=== PATIENT | male | born 1945 | race Caucasian/White ===

== ENCOUNTER 2025-02-17 16:29 | Emergency (ER) | payer OTHER, MEDICARE, SELFPAY ==
[2025-02-17 16:39] VITALS: BP 157/85
[2025-02-17 16:52] LABS: Hematocrit 44.0 % (39.0-52.0); Hemoglobin 15.4 g/dL (13.0-18.0); Mean Corp Hgb Conc. 35.0 g/dL (33.0-37.0); Mean Corpuscular Volume 90.0 fL (80.0-94.0); Nucleated Red Blood Cells % 0 % (-); Platelet Count 250 10^3/uL (130-400); Red Cell Dist. Width 14.0 % (11.5-14.5)
[2025-02-17 17:33] LABS: ALT (SGPT) 26 U/L (0-50); AST (SGOT) 26 U/L (17-59); Albumin 4.6 g/dl (3.5-5.0); Alkaline Phosphatase 117 U/L (38-126); Blood Urea Nitrogen 17 mg/dl (9-20); Calcium 9.6 mg/dl (8.4-10.2); Carbon Dioxide 20 mmol/L (22-30); Chloride 107 mmol/L (98-107); Glucose 105 mg/dl (70-99); Potassium 4.0 mmol/L (3.5-5.1); Sodium 140 mmol/L (135-145); Total Protein 8.0 g/dl (6.3-8.2); eGFR > 60.00
[2025-02-17 18:56] VITALS: BP 155/88
[2025-02-17 19:00] VITALS: BP 138/82
[2025-02-17 19:01] VITALS: BMI 32.7
--- NOTE | 2025-02-17 19:50 | ED.GENMED ---
History of Present Illness
General
Chief Complaint: Head Injury
Time Seen by Provider: 02/17/25 19:02
History of Present Illness
History of Present Illness:
79-year-old male history of hypertension presenting with difficulty speaking for the past 2 months. Patient's friend states that he had not talked him in a few months and then 2 to 3 months ago talk to him for the first time and noticed that his
speech was 'off'. Patient states that he went over to patient's home 2 weeks ago, Tried to convince the patient to go to the emergency department but patient refused. Patient was agreeable for evaluation today. Patient states that he had a
difficult time speaking with slurred speech for the past 2 to 3 months. Patient states that it for started happening after he slipped and fell at work striking his head. No loss of consciousness. Patient is not on blood thinners. Patient denies
any focal weakness, numbness or tingling. Patient states he lives at home alone but states that he feels safe at home. Friend at bedside states that when he picked patient up he was showered and appears to be taking good care of himself by himself.
Past History
Past History
ED Past Medical History: HTN and Other (Gout, peripheral vascular disease )
Social History
Tobacco: Non-smoker
Alcohol: Occasional
Living: with family
Employment: Employed
Phy Exam
Physical Exam
Physical Exam:
General: Alert, no acute distress
Head: NCAT
Eyes: clear conjunctiva, PERRLA, EOMI
Neck: supple
Cardiac: regular rate and rhythm, no murmur
Lungs: clear to auscultation bilaterally. No wheezes, rales, or rhonchi. Speaking full unlabored sentences. No respiratory distress.
Abdomen: soft, nondistended nontender. No rebound or guarding.
MSK: no lower extremity edema bilaterally. No deformity
Skin: warm, dry
Neuro: Alert and oriented x3. Cranial nerves II through XII grossly intact no focal deficits. Normal finger-nose. 5-5 strength bilateral upper and lower extremities. Station intact throughout. No pronator drift bilateral upper and lower
extremities. Ambulatory with steady gait. Mildly slurred speech, able to identify all items on picture but describes picture using single words. Uses appropriate words
Course
Orders/Labs/Results
Orders:
Orders
02/17/25 16:45
Complete Blood Count/With Diff Urgent
Comprehensive Metabolic Panel Urgent
02/17/25 17:[address] [CT Head W/o Iv Contrast] Urgent
Comment:
Reason For Exam: speech difficulty
02/17/25 19:59
EKG [Electrocardiogram (*1)] Urgent
Reason for Study: TIA/Stroke
EKG- Treatment ONCE
Abnormal Lab Results
02/17/25
16:45
WBC 11.6 H 10^3/uL
(4.8-10.8)
MCH 31.5 H pg
(27.0-31.0)
Abs Immat Gran (auto) 0.1 H 10^3/uL
(0-0.05)
Absolute Neuts (auto) 7.1 H 10^3/uL
(1.4-6.5)
Absolute Monos (auto) 1.1 H 10^3/uL
(0.1-0.6)
Monocytes % 9.4 H %
(1.7-9.3)
Carbon Dioxide 20 L mmol/L
(22-30)
Glucose 105 H mg/dl
(70-99)
02/17/25 16:45
02/17/25 16:45
Vital Signs
Initial and Last Documented VS:
Initial Vital Signs
Temp Pulse Resp BP Pulse Ox
98.2 F 93 16 157/85 95
02/17/25 16:39 02/17/25 16:39 02/17/25 16:39 02/17/25 16:39 02/17/25 16:39
Last Documented Vital Signs
Temp Pulse Resp BP Pulse Ox
98.2 F 94 28 155/85 93
02/17/25 16:39 02/17/25 20:15 02/17/25 20:00 02/17/25 20:00 02/17/25 19:51
MDM/Problems Addressed
Differential Diagnosis Includes:
Stroke, intracranial hemorrhage, brain mass, DG, electrolyte abnormality.
MDM/Problems Addressed:
79-year-old male presenting with difficulty speaking for the past 2 to 3 months. Patient states that it happened after he slipped and fell at work striking his head. CT head shows no acute intracranial abnormality, chronic senescent changes. On
evaluation, patient has minimally slurred speech, speaks in single words instead of fluent sentences. Concern for possible stroke that happened months ago. Discussed results with patient and friends at bedside. Recommended admission for neurology
consultation. Patient declined, states that he would like to follow-up outpatient. Given symptoms started 2 to 3 months ago, reasonable to follow-up outpatient at [facility]. Patient feels safe at home, states he is able to take care of himself. Stable
for discharge home
Chronic conditions affecting care: HTN
*Pulse Oximetry
SaO2: 93
Oxygen Mode of Delivery: Room air
Patient hypoxic: no
*EKG
Interpreted by ED Provider?: Yes (Normal sinus rhythm at 95 bpm with HI 200 QTc 497 right bundle branch block, no previous for comparison)
*Critical Care Note
Total Time (30-74mins, 75-104mins- exclusive of procedures): Not Applicable
ED Attending Note
-
Portions of this chart may have been created with voice recognition software.� Occasional wrong word or��sound alike� substitutions may have occurred due to the inherent limitations of voice recognition software.
Discharge Plan
Departure
Patient Disposition: Home (Routine Discharge)
Date of Disposition: 02/17/25
Time of Disposition: 20:20
Patient with high blood pressure during this ER visit?: Yes
Discharge Problem:
Slurred speech
Instructions: Stroke - Discharge instructions, BLOOD PRESSURE
Prescriptions:
No Action
doxycycline hyclate 100 MG capsule
100 mg PO BID Qty: 14 0RF
Referrals:
Donald Cross MD [Active, Neurology]
UNKNOWN - PT DOES,NOT KNOW [Family Provider]
Activity Restrictions/Additional Instructions:
Follow-up with neurology this week
Return to the emergency department for focal weakness, numbness, visual changes or new/worsening symptoms
Interventions
Interventions:
*Risk Screen - Suicide Last Done: 02/17/25 16:42
*General Assessment Last Done: 02/17/25 18:58
*Neglect/Abuse Screening Last Done: 02/17/25 16:42
*ED- Fall Risk Assessment Last Done: 02/17/25 18:58
*ED COVID-19 Vaccine History Last Done: 02/17/25 18:58
*Nursing Disposition Last Done: 02/17/25 20:40
ED- Neurological Assessment Last Done: 02/17/25 19:14
ED-Skin Assessment Last Done: 02/17/25 19:14
Discharge Date and Time
Discharge Date/Time: 02/17/25 21:29
Print Language: PORTUGUESE
[2025-02-17 20:00] VITALS: BP 155/85
== END 2025-02-17 21:29 | disposition home or self-care (01) ==
LOC: EMR 16:29
PROVIDERS: Student in an Organized Health Care Education/Training Program; EMERGENCY PHYSICIAN Emergency Medicine
DX: R47.81 Slurred speech (principal); I10 Essential (primary) hypertension; I73.9 Peripheral vascular disease, unspecified; Z60.2 Problems related to living alone; Z86.73 Personal history of transient ischemic attack (TIA), and cerebral infarction without residual deficits
CPT/HCPCS: 99284; 70450; 80053; 85025; 93005

== ENCOUNTER 2025-03-15 08:40 | Emergency (ER) | payer OTHER, MEDICARE, SELFPAY ==
[2025-03-15 08:45] VITALS: BP 142/78
--- NOTE | 2025-03-15 10:13 | ED.GENMED ---
History of Present Illness
General
Chief Complaint: Musculo-Skeletal Complaint
Source: patient
Exam Limitations: none
Time Seen by Provider: 03/15/25 10:02
History of Present Illness
History of Present Illness:
79-year-old male complaining of 2 weeks of neck pain. States he presented today because he is just tired of having. It is positional in nature. Denies numbness tingling weakness. Patient was here about 4 weeks ago for speech issues at that have
been ongoing for months at that time. Head CT was stable. Advised close neurologic follow-up then which he has not done yet. Denies other new neurologic symptoms.
Past History
Past History
ED Past Medical History: HTN and Other (Gout, peripheral vascular disease )
Social History
Tobacco: Non-smoker
Alcohol: Occasional
Review of Systems
Review of Systems
All Other Systems: Not applicable
Constitutional: Denies fever or chills
Respiratory: Reports no symptoms
Cardiac: Reports no symptoms
ABD/GI: Reports no symptoms
Phy Exam
Physical Exam
Physical Exam:
GENERAL: Alert and oriented in no apparent distress. Ambulated to the room in no distress
EYE: Orbits normal.
NECK: Decreased lateral rotation worse to the left than right. No spinal tenderness. No neck swelling. No carotid bruit
CARDIAC: Regular rate and rhythm without any obvious murmurs.
LUNGS: Clear breath sounds,normal
ABDOMEN: Soft, without focal tenderness or distention
NEUROLOGICAL: Alert and oriented , some expressive aphasia. However follows commands well. [employer] normal. Wrist extension flexion normal. Interosseous intact. Light touch normal. Gait normal. No facial droop. No slurred speech.
SKIN: Warm and dry, no rash or lesion, no discoloration, skin intact.
MUSCULOSKELETAL: No edema,no deformity.Good color
PSYCH: Normal and appropriate interaction.
Course
Orders/Labs/Results
Orders:
Orders
03/15/25 10:12
CT Head W/o Iv Contrast Urgent
Comment:
Reason For Exam: Neck pain/ongoing speech issues
CT Neck Angio W/wo Iv Contrast Urgent
Comment:
Reason For Exam: Neck pain/ongoing speech issues
IV Insert/Care/Rem.- Treatment PRN
0.9% Sodium Chloride 500 ml [Nss] 500 ml IV BOLUS
03/15/25 10:13
Basic Metabolic Panel Urgent
Complete Blood Count/With Diff Urgent
03/15/25 14:03
Acetaminophen [Tylenol] 650 mg PO NOW STA
Dexamethasone Sod Phosphate [Decadron] 6 mg IV NOW STA
Abnormal Lab Results
03/15/25
10:13
RDW 14.6 H %
(11.5-14.5)
Absolute Monos (auto) 1.1 H 10^3/uL
(0.1-0.6)
Monocytes % 11.6 H %
(1.7-9.3)
Creatinine 0.6 L mg/dL
(0.7-1.3)
Glucose 103 H mg/dl
(70-99)
Calcium 10.4 H mg/dl
(8.4-10.2)
03/15/25 10:13
03/15/25 10:13
Vital Signs
Initial and Last Documented VS:
Initial Vital Signs
Temp Pulse Resp BP Pulse Ox
98.2 F 94 16 142/78 98
03/15/25 08:45 03/15/25 08:45 03/15/25 08:45 03/15/25 08:45 03/15/25 08:45
Last Documented Vital Signs
Temp Pulse Resp BP Pulse Ox
98.2 F 97 20 146/69 93
03/15/25 08:45 03/15/25 14:14 03/15/25 14:14 03/15/25 14:14 03/15/25 14:14
MDM/Problems Addressed
Differential Diagnosis Includes:
Patient with neck discomfort for 2 weeks. Nothing to support an infectious issue. Clinically this is musculoskeletal in nature. However with his speech issues that have been going on for months, we will get a CT angio to check for dissection or
significant carotid obstruction.
*Pulse Oximetry
SaO2: 98
Oxygen Mode of Delivery: Room air
Patient hypoxic: no
*Critical Care Note
Total Time (30-74mins, 75-104mins- exclusive of procedures): Not Applicable
Update Note
Update Note:
CT scans were reviewed and copies given to patient. No critical vascular issues. Degenerative changes in the spine. Clinically this appears all musculoskeletal. Secondarily he has this aphasia that has been chronic and needs further workup as an
outpatient.
ED Attending Note
-
Portions of this chart may have been created with voice recognition software.� Occasional wrong word or��sound alike� substitutions may have occurred due to the inherent limitations of voice recognition software.
Discharge Plan
Departure
Patient Disposition: Home (Routine Discharge)
Date of Disposition: 03/15/25
Time of Disposition: 14:05
Patient with high blood pressure during this ER visit?: Yes
Discharge Problem:
Neck pain, Ongoing aphasia
Instructions: Neck pain - ED discharge instructions, BLOOD PRESSURE
Prescriptions:
New
methylprednisolone [Medrol ([place])] 4 mg tablets,dose pack
See Rx Instructions .ROUTE .COMPLEX Qty: 21 0RF
Rx Instructions:
orally per package directions
No Action
doxycycline hyclate 100 MG capsule
100 mg PO BID Qty: 14 0RF
Referrals:
NONE,* [Family Provider, Internal Medicine]
Activity Restrictions/Additional Instructions:
Call your primary physician for close follow-up of your cervical issues and of your difficulty speaking. This needs further outpatient workup
Start the oral prednisone tomorrow. Prescription was sent to your pharmacy
Tylenol for pain
Interventions
Interventions:
*Risk Screen - Suicide Last Done: 03/15/25 08:46
*General Assessment Last Done: 03/15/25 10:21
*Neglect/Abuse Screening Last Done: 03/15/25 08:46
*ED- Fall Risk Assessment Last Done: 03/15/25 10:21
*ED COVID-19 Vaccine History Last Done: 03/15/25 11:52
*Nursing Disposition Last Done: 03/15/25 14:15
ED-Musculoskeletal Assessment Last Done: 03/15/25 10:22
Discharge Date and Time
Discharge Date/Time: 03/15/25 14:16
Print Language: TURKMEN
[2025-03-15] MEDS: NSS 500 IV (10:19)
[2025-03-15 10:36] LABS: Hematocrit 44.7 % (39.0-52.0); Hemoglobin 15.3 g/dL (13.0-18.0); Mean Corp Hgb Conc. 34.2 g/dL (33.0-37.0); Mean Corpuscular Volume 90.3 fL (80.0-94.0); Nucleated Red Blood Cells % 0 % (-); Platelet Count 213 10^3/uL (130-400); Red Cell Dist. Width 14.6 % (11.5-14.5)
[2025-03-15 11:11] LABS: Blood Urea Nitrogen 14 mg/dl (9-20); Calcium 10.4 mg/dl (8.4-10.2); Carbon Dioxide 26 mmol/L (22-30); Chloride 102 mmol/L (98-107); Glucose 103 mg/dl (70-99); Potassium 4.0 mmol/L (3.5-5.1); Sodium 140 mmol/L (135-145); eGFR > 60.00
[2025-03-15] MEDS: TYLENOL 650 MG PO (14:09)
[2025-03-15] MEDS: DECADRON 6 MG IV (14:09)
[2025-03-15 14:14] VITALS: BP 146/69
== END 2025-03-15 14:16 | disposition home or self-care (01) ==
LOC: EMR 08:40
PROVIDERS: EMERGENCY PHYSICIAN Emergency Medicine
DX: M54.2 Cervicalgia (principal); R47.01 Aphasia; I10 Essential (primary) hypertension; I73.9 Peripheral vascular disease, unspecified
CPT/HCPCS: 99284; 70450; 70498; 80048; 85025; Q9967

== ENCOUNTER 2025-03-27 07:44 | Emergency (ER) | payer OTHER, MEDICARE, SELFPAY ==
[2025-03-27 07:46] VITALS: BP 144/78
--- NOTE | 2025-03-27 07:55 | ED.GENMED ---
History of Present Illness
General
Chief Complaint: Musculo-Skeletal Complaint
Source: patient
Exam Limitations: none
Time Seen by Provider: 03/27/25 07:49
History of Present Illness
History of Present Illness:
See MDM
Past History
Past History
ED Past Medical History: HTN and Other (Gout, peripheral vascular disease )
Social History
Tobacco: Non-smoker
Alcohol: Occasional
Living: with family
Employment: Employed
Phy Exam
Physical Exam
Physical Exam:
See MDM
Course
Orders/Labs/Results
Orders:
Orders
03/27/25 07:53
Cyclobenzaprine HCl [Flexeril] 10 mg PO NOW STA
Ibuprofen [Motrin] 600 mg PO NOW STA
Cervical Spine 4 or 5 Vw [CR Cervical Spine 4 Or 5 Vw] Urgent
Comment:
Reason For Exam: left posterior neck pain
03/27/25 07:54
Electrocardiogram (*1) Urgent
Reason for Study: Other
Other Reason for Exam: neck pain
EKG- Treatment ONCE
03/27/25 09:47
Lidocaine [Lidocaine 4% Patch] 1 patch TOPICAL ONCE ONE
Apply Lidocaine patch(s) to:: left neck
Vital Signs
Initial and Last Documented VS:
Initial Vital Signs
Temp Pulse Resp BP Pulse Ox
97.7 F 98 16 144/78 98
03/27/25 07:46 03/27/25 07:46 03/27/25 07:46 03/27/25 07:46 03/27/25 07:46
Last Documented Vital Signs
Temp Pulse Resp BP Pulse Ox
97.7 F 80 20 145/89 94
03/27/25 07:46 03/27/25 08:26 03/27/25 08:26 03/27/25 08:26 03/27/25 08:26
MDM/Problems Addressed
Differential Diagnosis Includes:
Note:
CHIEF COMPLAINT(S)
Neck pain for several days.
HISTORY OF PRESENT ILLNESS
The patient is a 79-year-old male who presents with neck pain that he reports has been present for a few days. The pain is located in the posterior cervical region. The patient is unsure of the cause, but denies any recent lifting or straining that
could have exacerbated the condition. No anterior neck pain is noted upon examination. The patient has not taken any medication for the pain. Pt denies chest pain or SOB
ALLERGIES
The patient reports an allergy to penicillin.
PHYSICAL EXAM
General: Alert, no acute distress.
Skin: Warm, dry.
Head: Normocephalic, atraumatic
Neck: Appears supple, trachea midline. No midline tenderness. Mild spasm noted to the left trapezius along paracervical musculature
Eyes, Ears, Nose, Mouth, and Throat: Oral mucosa moist.
Cardiovascular: No signs of cyanosis. Regular rate and rhythm
Respiratory: Respirations are non-labored.
Abdomen: Non-distended
Musculoskeletal: No deformities
Neurological: No focal neurological deficit observed.
Psychiatric: Cooperative, appropriate mood and affect.
PLAN
1. Administer pain medication and a muscle relaxant to manage pain and suspected muscle spasm.
2. Perform an electrocardiogram to evaluate cardiac function.
3. Conduct a neck X-ray to assess for any structural abnormalities.
DIFFERENTIAL DIAGNOSIS
The Differential Diagnosis includes, in no particular order and is not limited to:
1. Cervical muscle spasm
2. Cervical spondylosis
3. Cervical radiculopathy
4. Myofascial pain syndrome
5. Osteoarthritis
6. Herniated cervical disc
7. Cervical spine fracture
8. Fibromyalgia
9. Tension headache
10. Referred cardiac pain
SUMMARY OF ENCOUNTER
The patient, a 79-year-old male, presented to the emergency department with neck pain lasting several days, primarily in the posterior cervical region. Upon examination and patient history, no recent lifting or straining was reported, and the pain
was aggravated by ambulation. A neck X-ray was performed, revealing arthritic changes but no acute fracture. Based on the findings, the condition is considered musculoskeletal in nature, with no anterior neck pain, meningismus, or acute neurological
deficits. The patient is ambulatory without difficulty.
EMERGENCY TREATMENTS ADMINISTERED
A lidocaine patch and NSAIDs were administered to manage pain.
PLAN
Manage pain with lidocaine patch and NSAIDs. Educate the patient on musculoskeletal neck pain management. Monitor for any worsening symptoms or emergence of new symptoms, such as neurological changes.
INDEPENDENT REVIEW OF LABS AND INTERPRETATION OF TESTS
My independent neck X-ray interpretation is arthritic changes without acute fracture.
PATIENT EDUCATION AND COUNSELING
The patient was educated on the nature of musculoskeletal neck pain and advised on strict return precautions. The importance of monitoring for any new symptoms or neurological changes was emphasized.
FOLLOW-UP INSTRUCTIONS
The patient was advised to seek follow-up care if symptoms persist or worsen, specifically if neurological symptoms develop.
MEDICATION RECONCILIATION
A lidocaine patch and NSAIDs were administered during the visit.
MEDICAL DECISION MAKING
-Complexity of Data Reviewed:
DDx includes cervical muscle spasm, cervical spondylosis, cervical radiculopathy, myofascial pain syndrome, osteoarthritis, herniated cervical disc, cervical spine fracture, fibromyalgia, tension headache, referred cardiac pain.
-Data:
Category 1
My independent neck X-ray interpretation is arthritic changes without acute fracture.
DIAGNOSIS
Cervical spondylosis (ICD-10: M47.892)
Musculoskeletal neck pain (uncertain classification, likely cervicalgia if local neck pain without radiculopathy)
*Pulse Oximetry
SaO2: 98
Oxygen Mode of Delivery: Room air
Patient hypoxic: no
*Critical Care Note
Total Time (30-74mins, 75-104mins- exclusive of procedures): Not Applicable
ED Attending Note
-
Portions of this chart may have been created with voice recognition software.� Occasional wrong word or��sound alike� substitutions may have occurred due to the inherent limitations of voice recognition software.
Discharge Plan
Departure
Patient Disposition: Home (Routine Discharge)
Date of Disposition: 03/27/25
Time of Disposition: 09:50
Patient with high blood pressure during this ER visit?: Yes
Discharge Problem:
Neck pain
Instructions: Neck pain - ED discharge instructions, BLOOD PRESSURE
Prescriptions:
New
diclofenac sodium 75 mg tablet,delayed release (DR/EC)
75 mg PO BID PRN (Reason: Pain) Qty: 20 0RF
lidocaine 4 % adhesive patch,medicated
1 patch topical DAILY PRN (Reason: Pain) Qty: 10 0RF
No Action
doxycycline hyclate 100 MG capsule
100 mg PO BID Qty: 14 0RF
methylprednisolone [Medrol ([place])] 4 mg tablets,dose pack
See Rx Instructions .ROUTE .COMPLEX Qty: 21 0RF
Rx Instructions:
orally per package directions
Referrals:
Julieta Iraheta MD [Family Provider, Family Practice]
Activity Restrictions/Additional Instructions:
Please return for any worsening symptoms.
You may return at any time if you have further concerns.
Please follow up with your doctor at the first available appointment, preferably this week.
Thank you for choosing [facility].
Interventions
Interventions:
*Risk Screen - Suicide Last Done: 03/27/25 07:46
*General Assessment Last Done: 03/27/25 08:26
*Neglect/Abuse Screening Last Done: 03/27/25 07:46
*ED- Fall Risk Assessment Last Done: 03/27/25 08:26
*ED COVID-19 Vaccine History Last Done: 03/27/25 08:26
Discharge Date and Time
Print Language: POLISH
[2025-03-27 08:04] VITALS: BP 145/89
[2025-03-27] MEDS: MOTRIN 600 MG PO (08:24)
[2025-03-27] MEDS: FLEXERIL 10 MG PO (08:24)
[2025-03-27 08:26] VITALS: BP 145/89
[2025-03-27] MEDS: LIDOCAINE 4% PATCH 1 PATCH TOPICAL (09:53)
== END 2025-03-27 10:02 | disposition home or self-care (01) ==
LOC: EMR 07:44
PROVIDERS: EMERGENCY PHYSICIAN Student in an Organized Health Care Education/Training Program; FAMILY PHYSICIAN Family Medicine
DX: M54.2 Cervicalgia (principal); I10 Essential (primary) hypertension; I73.9 Peripheral vascular disease, unspecified; M10.9 Gout, unspecified; M47.812 Spondylosis without myelopathy or radiculopathy, cervical region; Z88.0 Allergy status to penicillin
CPT/HCPCS: 99284; 72050; 93005

== ENCOUNTER 2025-05-16 07:52 | Emergency (ER) | payer MEDICARE, OTHER, SELFPAY ==
[2025-05-16 07:53] VITALS: BP 157/94
--- NOTE | 2025-05-16 09:19 | ED.GENMED ---
History of Present Illness
General
Chief Complaint: Urinary Symptoms
Source: patient
Exam Limitations: none
Time Seen by Provider: 05/16/25 08:33
Nursing documentation reviewed up to this point in time: agreed with
History of Present Illness
History of Present Illness:
Patient is a 79-year-old male with history hypertension who presents emergency department with an inability to urinate since 9 PM last night. He states that he last urinated around 9 PM last night and has been unable to go since. He does have a
sense of urinary urgency. He denies any recent dysuria or hematuria. He has not had any fever or chills. He denies any abdominal pain. He denies any history of known prostate issues.
Patient clearly is having difficulty finding his words on my assessment. He states this has been occurring for 6 months and has never had this worked up. On chart review�it does appear that he has had a few CAT scans over the past few months in
regard to this which have been negative. He has not followed up with neurology. He does report that symptoms are worsening and he is now unsteady on his feet, as well.
He denies any recent falls or trauma. No visual changes.
He does report a past history of stroke many years ago.
Past History
Past History
ED Past Medical History: HTN and Other (Gout, peripheral vascular disease )
Social History
Tobacco: Non-smoker
Alcohol: Occasional
Living: with family
Employment: Employed
Review of Systems
Review of Systems
Allergies reviewed?: Yes
All Other Systems: ROS reviewed and negative except as documented in HPI and ROS
Phy Exam
Physical Exam
Physical Exam:
Vitals: Hypertensive and tachycardic on arrival. Improved by my assessment. Afebrile
General: Patient is well appearing, no acute distress
Skin: Warm and dry, no rashes or lesions
Head: Normocephalic, atraumatic
Eyes: Sclera nonicteric. EOMs intact. No nystagmus.
Throat: Protecting airway
Neck: Normal ROM, no cervical spine tenderness, no meningismus
Cardiac: Regular rate and rhythm, no murmurs.
Pulm: Normal respiratory effort, no wheezes, rales, rhonchi heard on exam
Abdomen: Abdomen soft and nontender. Nondistended.
Extremities: No evidence of cyanosis or edema. Strength 5/5 in bilateral upper and lower extremities.
Neuro: AAOx3. No facial droop or asymmetry. Expressive aphasia. Slow gait, no obvious ataxia.
Psychiatric: Normal affect.
Course
Orders/Labs/Results
Orders:
Orders
05/16/25 08:56
Mahoney Placement- Treatment ONCE
Reason for insertion: Acute Retention
05/16/25 09:45
CT Head & Neck Angio W/wo IV Urgent
Comment:
Reason For Exam: dysarthria
05/16/25 09:58
Complete Blood Count/With Diff Urgent
Comprehensive Metabolic Panel Urgent
Abnormal Lab Results
05/16/25
09:58
Absolute Neuts (auto) 7.1 H 10^3/uL
(1.4-6.5)
Absolute Monos (auto) 0.8 H 10^3/uL
(0.1-0.6)
Lymphocytes % 18.9 L %
(20.5-51.1)
Glucose 120 H mg/dl
(70-99)
05/16/25 09:58
05/16/25 09:58
Vital Signs
Initial and Last Documented VS:
Initial Vital Signs
Temp Pulse Resp BP Pulse Ox
97.6 F 112 16 157/94 95
05/16/25 07:53 05/16/25 07:53 05/16/25 07:53 05/16/25 07:53 05/16/25 07:53
Last Documented Vital Signs
Temp Pulse Resp BP Pulse Ox
97.6 F 74 16 121/74 98
05/16/25 07:53 05/16/25 12:53 05/16/25 12:53 05/16/25 12:53 05/16/25 12:53
MDM/Problems Addressed
Differential Diagnosis Includes:
Not limited to: Acute urinary retention, brain tumor, brain bleed, CVA, dementia, etc.
MDM/Problems Addressed:
79-year-old male presenting with acute urinary retention. No abdominal pain, infectious symptoms. Bladder scan reveals 360 cc in bladder, unable to void.
RN did place mahoney catheter which drained approximately 500 cc urine � does not appear infected. Patient states he feels much better.
On exam � patient appears to have relatively significant expressive aphasia. No other neurological deficits. I did discuss w/ patient who states this has been occurring over the past six months and has never been worked up by a medical professional.
He also feels it is becoming worse recently, and he is unsteady on his feet.
According to prior emergency department records � he has been seen for this with negative imaging a few times over the past few months. However � he has never had MRI or followed up with neurologist. Given worsening in symptoms as well as new
unsteadiness � will check labs and obtain CTA head/neck with concern for central process such as brain tumor/prior CVA.
Update: labs and imaging unremarkable. I strongly recommended admission to patient for neurology evaluation and likely MRI. Patient declined admission multiple times and is aware that we may be missing critical neurologic diagnosis.
Patient will be discharged home with return precautions. Advise him to follow up with neurology outpatient.
Lengthy discussion regarding Mahoney catheter care as well as urology follow up next week. Strict return precautions discussed.
Chronic conditions affecting care:
Hypertension
Acute Exacerbation and/or Progression of Chronic Illness:
Acutely hypertensive
*Radiology
Radiology exam reviewed: radiology read reviewed
*Pulse Oximetry
SaO2: 95
Oxygen Mode of Delivery: Room air
Patient hypoxic: no
*EKG
Interpreted by ED Provider?: NA
*Mold Yarn Supervisor Interpretation
Rate: Mold Yarn Supervisor- N/A
*Critical Care Note
Total Time (30-74mins, 75-104mins- exclusive of procedures): Not Applicable
ED Attending Note
-
Portions of this chart may have been created with voice recognition software.� Occasional wrong word or��sound alike� substitutions may have occurred due to the inherent limitations of voice recognition software.
Discharge Plan
Departure
Patient Disposition: Home (Routine Discharge)
Date of Disposition: 05/16/25
Time of Disposition: :
Patient with high blood pressure during this ER visit?: Yes
Condition: Good
Discharge Problem:
Acute urinary retention, Aphasia
Instructions: How to Care for Your Mahoney Catheter, Male, Aphasia (DC), Urinary retention (DC), BLOOD PRESSURE
Prescriptions:
No Action
doxycycline hyclate 100 MG capsule
100 mg PO BID Qty: 14 0RF
methylprednisolone [Medrol ([place])] 4 mg tablets,dose pack
See Rx Instructions .ROUTE .COMPLEX Qty: 21 0RF
Rx Instructions:
orally per package directions
diclofenac sodium 75 mg tablet,delayed release (DR/EC)
75 mg PO BID PRN (Reason: Pain) Qty: 20 0RF
lidocaine 4 % adhesive patch,medicated
1 patch topical DAILY PRN (Reason: Pain) Qty: 10 0RF
Referrals:
Nirali Connor MD [Non-Admitting Privileges, Neurology]
David Kim MD [Active, Urology] - Next open appointment
UNKNOWN - PT DOES,NOT KNOW [Family Provider]
Activity Restrictions/Additional Instructions:
RETURN TO THE EMERGENCY DEPARTMENT WITH ANY FEVER, CHILLS, ABDOMINAL PAIN, LACK OF URINE OUTPUT FROM CATHETER, BACK PAIN, WORSENING NEUROLOGIC SYMPTOMS SUCH DIFFICULTY WITH SPEECH OR BALANCE, CHANGES IN VISION, CHANGES IN MENTAL STATUS, OR ANY
OTHER CONCERNS
- As discussed, you were found to have acute urinary retention in the emergency department. A Mahoney catheter was placed. This must stay in until you are seen by urology. Please call on Sunday for an appt
- It was recommended that you stay in the hospital for neurology evaluation and MRI given worsening speech as well as unsteadiness. You should follow-up with neurology outpatient for further evaluation
Monitor your symptoms closely and return to the emergency department with any acute worsening/new symptoms or any signs of infection
Interventions
Interventions:
*Risk Screen - Suicide Last Done: 05/16/25 07:53
*General Assessment Last Done: 05/16/25 07:53
*Neglect/Abuse Screening Last Done: 05/16/25 07:53
*ED- Fall Risk Assessment Last Done: 05/16/25 09:33
*ED COVID-19 Vaccine History Last Done: 05/16/25 09:33
*Nursing Disposition Last Done: 05/16/25 12:53
ED-Male Genitourinary Assessment Last Done: 05/16/25 09:33
Discharge Date and Time
Discharge Date/Time: 05/16/25 12:54
Print Language: MALAWIAN
[2025-05-16 09:33] VITALS: BP 126/74
[2025-05-16 10:15] LABS: Hematocrit 46.2 % (39.0-52.0); Hemoglobin 16.2 g/dL (13.0-18.0); Mean Corp Hgb Conc. 35.1 g/dL (33.0-37.0); Mean Corpuscular Volume 88.0 fL (80.0-94.0); Nucleated Red Blood Cells % 0 % (-); Platelet Count 225 10^3/uL (130-400); Red Cell Dist. Width 13.6 % (11.5-14.5)
[2025-05-16 10:38] LABS: ALT (SGPT) 27 U/L (0-50); AST (SGOT) 30 U/L (17-59); Albumin 4.6 g/dl (3.5-5.0); Alkaline Phosphatase 115 U/L (38-126); Blood Urea Nitrogen 17 mg/dl (9-20); Calcium 9.9 mg/dl (8.4-10.2); Carbon Dioxide 25 mmol/L (22-30); Chloride 102 mmol/L (98-107); Glucose 120 mg/dl (70-99); Potassium 4.1 mmol/L (3.5-5.1); Sodium 137 mmol/L (135-145); Total Protein 7.9 g/dl (6.3-8.2); eGFR > 60.00
[2025-05-16 12:50] VITALS: BP 124/78
[2025-05-16 12:53] VITALS: BP 121/74
== END 2025-05-16 12:54 | disposition home or self-care (01) ==
LOC: EMR 07:52
PROVIDERS: Physician Assistant; EMERGENCY PHYSICIAN Emergency Medicine
DX: R33.9 Retention of urine, unspecified (principal); R47.01 Aphasia; I10 Essential (primary) hypertension; I73.9 Peripheral vascular disease, unspecified; M10.9 Gout, unspecified; Z86.73 Personal history of transient ischemic attack (TIA), and cerebral infarction without residual deficits
CPT/HCPCS: 99284; 51702; 70496; 70498; 80053; 85025; Q9967

== ENCOUNTER 2025-05-20 10:07 | Inpatient (IN) | payer MEDICARE, SELFPAY ==
[2025-05-16] VITALS (7 sets, daily range): BP systolic 134–157; BP diastolic 71–86; BMI 29.8
--- NOTE | 2025-05-16 19:05 | ED.GENMED ---
History of Present Illness
General
Chief Complaint: Catheter/Tube Problem
Source: patient
Exam Limitations: none
Time Seen by Provider: 05/16/25 18:26
History of Present Illness
History of Present Illness:
Patient was seen earlier with urinary retention. In addition he had ongoing aphasia issues. This was evaluated earlier with a stable CTA. They recommended admission earlier but patient left to go home. Apparently has changed his mind for 2
reasons 1 because of the workup for the aphasia and secondly because of some pain at his catheter site.
Past History
Past History
ED Past Medical History: HTN and Other (Gout, peripheral vascular disease )
Social History
Tobacco: Non-smoker
Alcohol: Occasional
Living: with family
Employment: Employed
Review of Systems
Review of Systems
All Other Systems: Not applicable
Respiratory: Reports no symptoms
Cardiac: Reports no symptoms
Phy Exam
Physical Exam
Physical Exam:
GENERAL: Alert and oriented in no apparent distress
EYE: Orbits normal.
NECK: Supple, no significant adenopathy.
ENT: Pharynx without erythema
CARDIAC: Regular rate and rhythm without any obvious murmurs.
LUNGS: Clear breath sounds,normal
ABDOMEN: Soft, without focal tenderness or distention. [place] in place. Appears to be functioning. Bladder ultrasound negative
NEUROLOGICAL: Alert and oriented , significant aphasia. Cranial nerves II through XII intact otherwise. No drift. Gait is slightly wide-based but reasonable. Touch intact.
SKIN: Warm and dry, no rash or lesion, no discoloration, skin intact.
MUSCULOSKELETAL: No edema,no deformity.Good color
PSYCH: Normal and appropriate interaction.
Course
Vital Signs
Initial and Last Documented VS:
Initial Vital Signs
Temp Pulse Resp BP Pulse Ox
98.7 F 133 16 148/83 96
05/16/25 16:31 05/16/25 16:31 05/16/25 16:31 05/16/25 16:31 05/16/25 16:31
Last Documented Vital Signs
Temp Pulse Resp BP Pulse Ox
98.7 F 133 16 134/76 95
05/16/25 16:31 05/16/25 16:31 05/16/25 16:31 05/16/25 19:00 05/16/25 18:40
*Pulse Oximetry
SaO2: 95
Oxygen Mode of Delivery: Room air
Patient hypoxic: no (96)
*Critical Care Note
Total Time (30-74mins, 75-104mins- exclusive of procedures): Not Applicable
ED Attending Note
-
Portions of this chart may have been created with voice recognition software.� Occasional wrong word or��sound alike� substitutions may have occurred due to the inherent limitations of voice recognition software.
Discharge Plan
Departure
Patient Disposition: Admit
Date of Disposition: 05/16/25
Time of Disposition: 19:08
Presentation/result/management discussed w/ accepting MD/DO: Hospitalist
Discharge Problem:
Progressive expressive aphasia, Acute urinary retention
Prescriptions:
No Action
doxycycline hyclate 100 MG capsule
100 mg PO BID Qty: 14 0RF
methylprednisolone [Medrol ([place])] 4 mg tablets,dose pack
See Rx Instructions .ROUTE .COMPLEX Qty: 21 0RF
Rx Instructions:
orally per package directions
diclofenac sodium 75 mg tablet,delayed release (DR/EC)
75 mg PO BID PRN (Reason: Pain) Qty: 20 0RF
lidocaine 4 % adhesive patch,medicated
1 patch topical DAILY PRN (Reason: Pain) Qty: 10 0RF
Referrals:
UNKNOWN - PT DOES,NOT KNOW [Family Provider]
Interventions
Interventions:
*Risk Screen - Suicide Last Done: 05/16/25 16:31
*General Assessment Last Done: 05/16/25 16:31
*Neglect/Abuse Screening Last Done: 05/16/25 16:31
*ED- Fall Risk Assessment Last Done: 05/16/25 16:31
*ED COVID-19 Vaccine History Last Done: 05/16/25 16:31
Discharge Date and Time
Print Language: CROATIAN
--- NOTE | 2025-05-16 19:13 | HPS.HSE ---
Family Physician
-
Family Physician: NOT KNOW UNKNOWN - PT DOES
Chief Complaint
-
urinary retention
History of Present Illness
This is a 79-year-old male with past medical history significant for hypertension, gout, peripheral arterial disease who presents to the emergency department for acute urinary retention status post urinary cath placement and then returns to the
emergency department for evaluation of progressive aphasia that has been going on for the last few months.
Patient tells me that he has been having trouble speaking for the last 6 months. He reports that he has some word finding difficulties. He denies having memory issues. He is unclear to me whether there is some degree of dementia as well. Denies
any focal weaknesses. He denies any facial droop. He denies any numbness or tingling. He denies having any palpitations lightheadedness or dizziness. Denies any new medications.
He has had multiple CT scans in the past but has not had further evaluation for his word finding difficulties. Denies any difficulty swallowing.
He reported that he arose last night and had trouble urinating. He denied having any urinary pressure. He denies dysuria frequency urgency flank pain fevers or chills nausea vomiting or diarrhea. Patient denies taking any new medications or
[id number] medications that could be anticholinergic.
He was seen in the emergency department earlier and found to have urinary retention. With not exactly clear how much was retaining but a urinary catheter was placed and patient was discharged. He says that the returns back to the hospital because
he is having some mild discomfort. However it seems that the return was due to ED doctors requesting that he stays for further evaluation of his aphasia.
In the emergency department he was afebrile, blood pressure was 154/76 with a pulse of 74 and he was satting 95% on room air.
He had CT angio of the head and neck which showed no evidence of a large vessel occlusion, there is less than 50% proximal right internal carotid stenosis and 50% proximal left internal carotid stenosis which is stable from prior. No other acute
intracranial changes
CBC was unremarkable. Electrolyte BUN/creatinine were within normal range. LFTs were normal.
Medical History
Past Medical History
Past Medical History: Reports HTN and Other (gout, peripheral vascular disease)
Past Surgical History: Reports None
Social History
Tobacco: Non-smoker
Alcohol: Occasional
Drug: None
Living: With Family
Family History
Family History: Not pertinent
Allergies / Home Medications
Allergies reflects when Allergies were last updated in [facility].
Home Medications with original date entered in [facility]
Allergy/Medication List:
Allergies
Allergy/AdvReac Type Severity Reaction Status Date / Time
Penicillins Allergy syncope Verified 05/16/25 16:34
Home Medications
doxycycline hyclate 100 mg capsule 100 mg PO BID #14 caps 09/09/09
methylprednisolone 4 mg tablets in a dose pack (Medrol ([place])) See Rx Instructions PO .COMPLEX #21 ea 03/15/25
diclofenac sodium 75 mg tablet,delayed release 75 mg PO BID PRN Pain #20 tabs 03/27/25
lidocaine 4 % topical patch 1 patch topical DAILY PRN Pain #10 ea 03/27/25
Review of Systems
-
Constitutional: Reports No Symptoms
EENT: Reports No Symptoms
Respiratory: Reports No Symptoms
Cardiac: Reports No Symptoms
Abdomen/GI: Reports No Symptoms
: Reports Difficulty Voiding and Mahoney
Musculoskeletal: Reports No Symptoms
Skin: Reports No Symptoms
Endocrine: Reports No Symptoms
Hematologic/Lymphatic: Reports No Symptoms
Psych: Reports No Symptoms
Physical Exam
Vital Signs
Vital Signs
Temp Pulse Resp BP Pulse Ox
98.7 F 133 16 134/76 95
05/16/25 16:31 05/16/25 16:31 05/16/25 16:31 05/16/25 19:00 05/16/25 19:08
Physical Exam
General: Well Developed, Well Nourished and No Apparent Distress
HEENT: NormoCephalic, Moist mucous membranes and Atraumatic
Respiratory: Clear
Cardiac: S1/S2 and Regular Rhythm; No Murmur or Rub
GI: Soft, Non Tender, Non Distended and Normal Bowel Sounds; No Organomegaly
Rectal: Deferred by Provider
Genito-urinary: Mahoney
Musculoskeletal: No Clubbing, No Cyanosis and No Edema
Skin: No Rash
Neuro: Alert, Oriented (oriented x 3), Nonfocal/grossly intact, Cranial Nerves Intact, No Sensory Deficits and Slurred Speech; No Facial Droop or Tremors
Data Reviewed
-
CT Scan: Report Reviewed by me
Lab Data: Labs Reviewed by me
Old Records: Reviewed
Impression/Plan
-
IMPRESSION:
79-year-old with history of hypertension, gout and peripheral vascular disease who presents to the emergency department with acute onset of urinary retention status post Mahoney catheter placement and discharge. However patient also has a history of
aphasia which has been ongoing for 6 months according to patient with the recent CT scan done in February and another CT scan done today which shows stable known occlusive arthrosclerosis with no evidence of large vessel occlusion and only 50% proximal
right internal and left internal carotid artery stenosis. No acute parenchymal findings.
PLAN:
Aphasia -stable chronic at this time ongoing for the last 6 months and apparently unchanged. No evidence for an acute CVA particular for prior CVA. No history of seizures. Patient lives alone and has no close contacts according to him. Does not
appear to have dementia he is alert and oriented x 3 but cannot explore with was of any specific memory details
-Admit to MedSurg/obs
-Will get an MRI
-Check lipid panel and A1c
-Check TSH, ESR, B12, RPR
- U/A
- neurology consult
Urinary retention - Acute onset according to patient. Denies h/o BPH. Denies any prior episodeds of urinary retention, denies anticholinergics
- s/p mahoney placement in ED, can get outpatient urology follow up
- trial of tamsulosin
PT consult
DVT PPX - SCD
Code status - Full code
[2025-05-16 22:54] LABS: Urine Character Cloudy (Clear)
[2025-05-16 23:06] LABS: Urine Squamous Cell 0-2 /LPF (Few)
[2025-05-16 23:07] LABS: Urine Red Blood Cell 26-30 /HPF (0-2)
[2025-05-16 23:08] LABS: Urine White Cell 80-90 /HPF (0-5)
[2025-05-17] VITALS (7 sets, daily range): BP systolic 116–182; BP diastolic 63–93; PULSE 112; O2SAT 95
[2025-05-17] MEDS: ROCEPHIN 1000 MG IV (05:02)
[2025-05-17] MEDS: STERILE WATER FOR INJECTION 10 ML IV (05:03)
[2025-05-17 06:56] LABS: Hematocrit 44.9 % (39.0-52.0); Hemoglobin 15.7 g/dL (13.0-18.0); Mean Corp Hgb Conc. 35.0 g/dL (33.0-37.0); Mean Corpuscular Volume 90.0 fL (80.0-94.0); Platelet Count 227 10^3/uL (130-400); Red Cell Dist. Width 13.5 % (11.5-14.5)
[2025-05-17 07:21] LABS: Blood Urea Nitrogen 19 mg/dl (9-20); Calcium 9.8 mg/dl (8.4-10.2); Carbon Dioxide 28 mmol/L (22-30); Chloride 101 mmol/L (98-107); Estimated Creatinine Clearance 75 ml/min; Glucose 111 mg/dl (70-99); HDL Cholesterol 55 mg/dl; LDL Cholesterol, Calculated 83 mg/dl; Magnesium 2.0 mg/dl (1.6-2.3); Potassium 4.0 mmol/L (3.5-5.1); Sodium 138 mmol/L (135-145); Very Low Density Lipoprotein 39 mg/dl (0-30); eGFR > 60.00
[2025-05-17 07:53] LABS: TSH 1.52 uIU/ml (0.47-4.68)
[2025-05-17 08:12] LABS: Vitamin B12 301 pg/ml (239-931)
--- NOTE | 2025-05-17 08:21 | W.PN.HOSP.TC ---
Today's Communication/Plan
-
See plan
Assessment / Plan
Assessment / Plan
Physical Exam
General: Well Developed, Well Nourished and No Apparent Distress
HEENT: Normocephalic, Moist mucous membranes and Atraumatic
Respiratory: Clear
Cardiac: S1/S2 and Regular Rhythm
GI: Soft, Non Tender, Non Distended and Normal Bowel Sounds
Genito-urinary: Mahoney
Musculoskeletal: No Clubbing, No Cyanosis and No Edema
Skin: Warm. Dry.
Neuro: Alert, Oriented (oriented x 3), Nonfocal/grossly intact, Cranial Nerves Intact, No Sensory Deficits and Slurred Speech
Psych: Calm. Good insight and judgement.
Assessment/Plan
79-year-old male with past medical history significant for hypertension, gout, peripheral arterial disease who presented to the emergency department for acute urinary retention status post urinary cath placement and then returned to the emergency
department for evaluation of progressive aphasia that had been going on for the last 6 months. Trouble speaking for the last 6 months, some word finding difficulties. He has had multiple CT scans in the past but has not had further evaluation for
his word finding difficulties.
He reported that he arose on 05/15/25 evening, and had trouble urinating. He denied having any urinary pressure. He denies dysuria frequency urgency flank pain fevers or chills nausea vomiting or diarrhea. Patient denied taking any new
medications or [id number] medications that could be anticholinergic.
He was seen in the emergency department earlier and found to have urinary retention. With not exactly clear how much was retaining but a urinary catheter was placed and patient was discharged. He says that the returns back to the hospital because
he is having some mild discomfort. However it seems that the return was due to ED doctors requesting that he stays for further evaluation of his aphasia.
In the emergency department he had CT angio of the head and neck which showed no evidence of a large vessel occlusion, there is less than 50% proximal right internal carotid stenosis and 50% proximal left internal carotid stenosis which is stable
from prior. No other acute intracranial changes.

Chronic expressive aphasia
-MRI. EEG.
-Lipid Panel with LDL 83 -- add Lipitor 40 mg daily especially with carotid stenosis findings on CT imaging
-Glucose levels so far (111) do not suggest full onset DM or even pre-diabetes, but A1c can be checked if desired outpatient
-TSH normal
-ESR elevated at 63
-Vitamin B12 on the lower side at 301 -- start Vitamin B12
-RPR was ordered on admission and pending
-Neurology consult appreciated
Hand Action Tremor
Urinary retention - Acute onset according to patient.
-Denied h/o BPH. Denies any prior episodeds of urinary retention, denies anticholinergics
-s/p mahoney placement in ED, can get outpatient urology follow up
-trial of tamsulosin
UTI?
Initially he said no dysuria or abdominal pain but then he said he had it and it is getting better after antibiotics
Follow urine culture
Continue Rocephin for now -- anticipate short course of antibiotics, but follow culture
PAD
Gout
Less than 50% proximal right internal carotid artery stenosis
50% proximal left internal carotid artery stenosis
-Start statin
-May benefit from baby Aspirin as well -- can discuss with neuro
Mild emphysematous disease on CTA Head and Neck
Multilevel degenerative disc disease. Mild reversal of the normal cervical spinal lordosis likely degenerative in nature. Stable (on CTA Chest)
DVT Prophylaxis: SCDs. Lovenox.
Code Status: Full code
Anticipated Discharge: Within 24 hours
Subjective/Interval History
-
Date of Service: May 17, 2025
Patient was seen and examined. Patient reported that his urine burning sensation and abdominal pain are better.
Objective Data
-
Labs:
Laboratory Results
05/17/25
06:36
WBC 15.8 H
Hgb 15.7
Hct 44.9
Plt Count 227
Sodium 138
Potassium 4.0
Chloride 101
Carbon Dioxide 28
BUN 19
Creatinine 0.8
Glucose 111 H
Calcium 9.8
Vital Signs:
Vital Signs
Temp Pulse Resp BP Pulse Ox
97.5 F 81 12 135/75 93
05/16/25 23:40 05/16/25 23:40 05/16/25 23:40 05/16/25 23:40 05/16/25 23:40
I&O
05/16/25 05/17/25 05/18/25
06:59 06:59 06:59
Intake Total 960 / 960
Output Total 500 / 500
Balance 460 / 460
[2025-05-17] MEDS: FLOMAX 0.4 MG PO (09:09)
--- NOTE | 2025-05-17 09:29 | CON.NEURO ---
Consultation
Order
Date of Consultation: 05/17/25
Requesting Provider: Andrew Barreto MD
Reason for Consult: Stroke
Neurology Consultation Note.
HPI: This is a 79-year-old man who presented to [facility] on 05/16/2025 with urinary retention.
Neurology consultation was requested for evaluation and management of expressive aphasia.
ER VS: 157/94, 112, afebrile.
EKG: Not available.
PDMP:none
Labs: Glucose�111, normal sodium, WBCs�15.8, LDL�83, vitamin B12�301, TSH�1.52.
UA�positive for nitrates, leukocyte esterase, WBCs, RBCs, bacteria and albumin.
CT head wo contrast�moderate to severe generalized volume loss
CTA head/neck-50% proximal left internal carotid artery stenosis.
According to Conor Krishnan, the patient has been having difficulty speaking since he fell back in October, struggling with word finding. The patient lives alone at [facility] [employer] [place] where he has been renting a room for 12 years. He
reportedly drives, cooks for himself, and functions independently. The patient has no immediate family, children, or spouse, with brothers in [place] who do not speak to him. His friend describes him as 'bullheaded' and resistant to accepting help,
noting that the patient does not want assistance despite needing it. The patient has not been answering his phone or talking to his friend recently.
PMH: HTN, DLP, PAD, gout
PSH:left mastoidectomy
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
FH: Father in 90s.
All:PNC
ROS: Positive for urinary retention, aphasia. Negative for headache, change in vision or strength.
General: Well developed. In no acute distress.
Cardio: Regular rate and rhythm without murmur. Extremities are without cyanosis or edema.
Neuro:
Mental Status: Alert, oriented to person, place, and date. Impaired attention. Expressive aphasia. Follows complex requests.
Cranial Nerves: Pupils are equally round and reactive to light. EOMs full. Visual solis full to confrontation. No ptosis. No nystagmus. ruiz symmetric. Impaired hearing AU. The palate elevated well. SCMs and traps 5/5. Tongue midline. No
dysarthria.
Motor: Increased motor tone. No pronator or arm drift. No pronator or arm drift. No clonus.
Reflexes: Negative grasp bilaterally
Sensory: Preserved vibration at the ankles.
Coordination: Mild action hand tremor
Gait: deferred
Assessment and Plan:
I. Chronic expressive aphasia. 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
II. Mood disorder, NOS
III. Action hand tremor.
- Fall precautions
- Brain MRI without mayte
- Routine EEG
- gas pit worker consult
- PT
- Outpatient neuropsychological evaluation, driving safety evaluation.
- DVT prophylaxis.
I personally reviewed all radiology and labs along with past medical records pertinent to current medical problems. Total time spent in patient care is 55 minutes.
Thank you for allowing us to participate in the care of this patient. We will continue to follow. Please do not hesitate to contact us with any questions or concerns.
Subjective/Objective
Subjective Data
Date of Service: May 17, 2025
Objective Data
Vital Signs
Temp Pulse Resp BP Pulse Ox
36.6 C 78 18 135/73 95
05/17/25 08:15 05/17/25 08:15 05/17/25 08:15 05/17/25 08:15 05/17/25 08:15
Lab Results
05/17/25 06:36
05/17/25 06:36
Sodium 138 mmol/L (135-145) 05/17/25 06:36
Potassium 4.0 mmol/L (3.5-5.1) 05/17/25 06:36
BUN 19 mg/dl (9-20) 05/17/25 06:36
Glucose 111 mg/dl (70-99) H 05/17/25 06:36
Calcium 9.8 mg/dl (8.4-10.2) 05/17/25 06:36
LDL Cholesterol, Calc 83 mg/dl 05/17/25 06:36
Vitamin B12 301 pg/ml (239-931) 05/17/25 06:36
Patient Allergies
Penicillins Allergy (Verified 05/16/25 16:34)
syncope
Medications
-
Active Medications
Generic Name Dose Route Start Last Admin
Trade Name Freq PRN Reason Stop Dose Admin
Acetaminophen 650 mg 05/16/25 21:19
Acetaminophen 325 Mg Tablet PO 06/13/25 21:18
Q4HPRN PRN
mild pain/SMITH/temp> 100.4F
Bisacodyl 10 mg 05/16/25 21:19
Bisacodyl 10 Mg Rectal Suppository RECTAL 06/13/25 21:18
[id number] PRN
constipation
Ceftriaxone Sodium 1,000 mg 05/17/25 06:00 05/17/25 05:02
Ceftriaxone 1000 Mg / 10 Ml Vial IV 1,000 mg
Q24H VERÓNICA Administration
Polyethylene Glycol 17 grams 05/16/25 21:19
Polyethylene Glycol Powder 17 Grams Packet PO 06/13/25 21:18
DAILYPRN PRN
constipation
Senna/Docusate Sodium 1 tablet 05/16/25 21:19
Docusate W/Senna (Nora-Colace) Tablet PO 06/13/25 21:18
BIDPRN PRN
constipation
Sodium Chloride 0 flush 05/16/25 22:00
Sodium Chloride 0.9% (Flush) Syringe IV 06/13/25 21:59
PER PROTOCOL VERÓNICA
Sterile Water 10 ml 05/17/25 06:00 05/17/25 05:03
Sterile Water For Injection 10 Ml Vial IV 06/14/25 05:59 10 ml
Q24H VERÓNICA Administration
Tamsulosin HCl 0.4 mg 05/17/25 08:00 05/17/25 09:09
Tamsulosin 0.4 Mg Capsule PO 06/14/25 07:59 0.4 mg
DAILY VERÓNICA Administration
Home Medications
�Medication �Instructions �Recorded
doxycycline hyclate 100 mg capsule 100 mg PO BID #14 caps 09/09/09
methylprednisolone 4 mg tablets in See Rx Instructions PO .COMPLEX 03/15/25
a dose pack (Medrol (Keny)) #21 ea
diclofenac sodium 75 mg 75 mg PO BID PRN Pain #20 tabs 03/27/25
tablet,delayed release
lidocaine 4 % topical patch 1 patch topical DAILY PRN Pain #10 03/27/25
ea
Vital Signs and Labs
-
Vital Signs and Labs:
Vital Signs
Temp Pulse Resp BP Pulse Ox
36.6 C 78 18 135/73 95
05/17/25 08:15 05/17/25 08:15 05/17/25 08:15 05/17/25 08:15 05/17/25 08:15
Lab Results
05/17/25 06:36
05/17/25 06:36
Sodium 138 mmol/L (135-145) 05/17/25 06:36
Potassium 4.0 mmol/L (3.5-5.1) 05/17/25 06:36
BUN 19 mg/dl (9-20) 05/17/25 06:36
Glucose 111 mg/dl (70-99) H 05/17/25 06:36
Calcium 9.8 mg/dl (8.4-10.2) 05/17/25 06:36
LDL Cholesterol, Calc 83 mg/dl 05/17/25 06:36
Vitamin B12 301 pg/ml (239-931) 05/17/25 06:36
Medications
-
Medications:
Generic Name Dose Route Start Last Admin
Trade Name Freq PRN Reason Stop Dose Admin
Acetaminophen 650 mg 05/16/25 21:19
Acetaminophen 325 Mg Tablet PO 06/13/25 21:18
Q4HPRN PRN
mild pain/SMITH/temp> 100.4F
Bisacodyl 10 mg 05/16/25 21:19
Bisacodyl 10 Mg Rectal Suppository RECTAL 06/13/25 21:18
[id number] PRN
constipation
Ceftriaxone Sodium 1,000 mg 05/17/25 06:00 05/17/25 05:02
Ceftriaxone 1000 Mg / 10 Ml Vial IV 1,000 mg
Q24H VERÓNICA Administration
Polyethylene Glycol 17 grams 05/16/25 21:19
Polyethylene Glycol Powder 17 Grams Packet PO 06/13/25 21:18
DAILYPRN PRN
constipation
Senna/Docusate Sodium 1 tablet 05/16/25 21:19
Docusate W/Senna (Nora-Colace) Tablet PO 06/13/25 21:18
BIDPRN PRN
constipation
Sodium Chloride 0 flush 05/16/25 22:00
Sodium Chloride 0.9% (Flush) Syringe IV 06/13/25 21:59
PER PROTOCOL VERÓNICA
Sterile Water 10 ml 05/17/25 06:00 05/17/25 05:03
Sterile Water For Injection 10 Ml Vial IV 06/14/25 05:59 10 ml
Q24H VERÓNICA Administration
Tamsulosin HCl 0.4 mg 05/17/25 08:00 05/17/25 09:09
Tamsulosin 0.4 Mg Capsule PO 06/14/25 07:59 0.4 mg
DAILY VERÓNICA Administration
Home Medications
-
Home Medications
doxycycline hyclate 100 mg capsule 100 mg PO BID #14 caps 09/09/09
methylprednisolone 4 mg tablets in a dose pack (Medrol (Keny)) See Rx Instructions PO .COMPLEX #21 ea 03/15/25
diclofenac sodium 75 mg tablet,delayed release 75 mg PO BID PRN Pain #20 tabs 03/27/25
lidocaine 4 % topical patch 1 patch topical DAILY PRN Pain #10 ea 03/27/25
[2025-05-17 11:48] LABS: Hepatitis C Antibody Negative (Negative)
--- NOTE | 2025-05-17 12:07 | CM ---
Reviewed the chart notes and spoke with the patient at the bedside. The patient is being admitted under observational status. The BARRON letter was provided and explained. The patient had no questions with regards to the letter.
The patient resides alone in a motel room at [facility]. The patient reports no DME/VN/SNF. The patient confirmed his pharmacy of choice is [facility]. Resource information was provided for the [facility],
the [facility], and [facility]. Patient is in the [place] system. CM continues to be available to patient/family and is monitoring medical plan for needs at discharge.
Plan: Discharge to home when medically stable. Per nursing, patient was overdue on rent and his friend Conor paid rent for the month.
[2025-05-17] MEDS: LIPITOR 40 MG PO (20:29)
[2025-05-17] MEDS: LOVENOX 40 MG SC (20:30)
[2025-05-17] MEDS: VITAMIN B-12 1000 MCG PO (20:30)
[2025-05-18] VITALS (8 sets, daily range): BP systolic 125–142; BP diastolic 64–88
[2025-05-18] MEDS: TYLENOL 650 MG PO (02:57)
[2025-05-18] MEDS: ROCEPHIN 1000 MG IV (05:44)
[2025-05-18] MEDS: STERILE WATER FOR INJECTION 10 ML IV (05:44)
[2025-05-18] MEDS: VITAMIN B-12 1000 MCG PO (08:27)
[2025-05-18] MEDS: FLOMAX 0.4 MG PO (08:27)
[2025-05-18 09:04] LABS: Hematocrit 46.7 % (39.0-52.0); Hemoglobin 16.2 g/dL (13.0-18.0); Mean Corp Hgb Conc. 34.7 g/dL (33.0-37.0); Mean Corpuscular Volume 90.3 fL (80.0-94.0); Platelet Count 222 10^3/uL (130-400); Red Cell Dist. Width 13.5 % (11.5-14.5)
--- NOTE | 2025-05-18 09:04 | W.PN.HOSP.TC ---
Today's Communication/Plan
-
see A/P
Assessment / Plan
Assessment / Plan
HPI: 79-year-old male with past medical history significant for hypertension, gout, peripheral arterial disease; who presented to the emergency department for acute urinary retention status post urinary cath placement and then returned to the
emergency department for evaluation of progressive aphasia that had been going on for the last 6 months. Trouble speaking for the last 6 months, some word finding difficulties. He has had multiple CT scans in the past but has not had further
evaluation for his word finding difficulties.
He reported that he arose on 05/15/25 evening and had trouble urinating. He denied having any urinary pressure. Patient denied taking any new medications or [id number] medications that could be anticholinergic.
He was seen in the emergency department earlier and found to have urinary retention. Not exactly clear how much was retaining but a urinary catheter was placed and patient was discharged. He returned for further evaluation of his aphasia.
In the emergency department he had CT angio of the head and neck which showed no evidence of a large vessel occlusion, less than 50% proximal right internal carotid stenosis and 50% proximal left internal carotid stenosis which is stable from prior.
No other acute intracranial changes.
A/P:
# Chronic expressive aphasia, Likely neurodegenerative per neuro
MRI brain showed No acute intracranial abnormality.
Follow EEG
Lipid Panel with LDL 83, added Lipitor 40 mg daily in setting of carotid stenosis findings on CT imaging
TSH normal
ESR on admission elevated at 63, check repeat level
Vitamin B12 on the lower side at 301, started Vitamin B12
RPR was ordered on admission and pending
Neurology consult appreciated
# Urinary retention, Acute onset according to patient.
Denied h/o BPH. Denies any prior episodes of urinary retention, denies anticholinergics
s/p mahoney placement in ED, can get outpatient urology follow up
Started trial of tamsulosin
# Complicated UTI?
Follow urine culture
Continue Rocephin for now
# PAD
# Gout
# carotid artery stenosis, Less than 50% proximal right internal carotid artery stenosis, 50% proximal left internal carotid artery stenosis
Started statin
May benefit from baby Aspirin as well, can discuss with neuro
# Multilevel degenerative disc disease. Mild reversal of the normal cervical spinal lordosis likely degenerative in nature. Stable (on CTA Chest)
DVT Prophylaxis: Lovenox SQ
Code Status: Full code
Dispo: PT recc SNF
DW RN
total time 51 min
Anticipated Discharge: 24 - 48 hours
Subjective/Interval History
-
Date of Service: May 18, 2025
Objective Data
-
Labs:
Laboratory Results
05/18/25
08:20
WBC Pending
Hgb Pending
Hct Pending
Plt Count Pending
Sodium Pending
Potassium Pending
Chloride Pending
Carbon Dioxide Pending
BUN Pending
Creatinine Pending
Glucose Pending
Calcium Pending
Vital Signs:
Vital Signs
Temp Pulse Resp BP Pulse Ox
36.8 C 75 18 134/73 98
05/18/25 07:30 05/18/25 07:30 05/18/25 07:30 05/18/25 07:30 05/18/25 07:30
I&O
05/17/25 05/18/25 05/19/25
06:59 06:59 06:59
Intake Total 960 / 960 220 / 220
Output Total 500 / 500 925 / 925
Balance 460 / 460 -705 / -705
Review of Systems
-
Unable to obtain full review of systems at this time due to: Other (expressive aphasia)
Physical Exam
-
General: Well Developed, Well Nourished, No Apparent Distress, Comfortable, Appears Chronically Ill and Other (expressive aphasia, answers 'yes' or 'no' ); Negative Respiratory Distress
HEENT: Normocephalic, Atraumatic, Nose Appears Normal and Ears Appear Normal; Negative Oxygen
Respiratory: Clear to Auscultation and Non Labored Respirations; Negative Accessory Resp Muscle Use
Cardiac: Regular Rhythm and S1/S2
GI: Soft, Nontender, Nondistended and Normal Bowel Sounds
Genito-urinary: Mahoney
Skin: Warm and Dry
Neuro: Awake and Alert
Psych: Calm
Data Reviewed
-
CT Scan: Report Reviewed by me
MRI: Report Reviewed by me and Discussed with Patient
Labs: Labs Reviewed by me
[2025-05-18 09:43] LABS: Blood Urea Nitrogen 13 mg/dl (9-20); Calcium 9.6 mg/dl (8.4-10.2); Carbon Dioxide 29 mmol/L (22-30); Chloride 102 mmol/L (98-107); Estimated Creatinine Clearance 86 ml/min; Glucose 114 mg/dl (70-99); Potassium 4.0 mmol/L (3.5-5.1); Sodium 140 mmol/L (135-145); eGFR > 60.00
--- NOTE | 2025-05-18 10:28 | PTOTSP ---
Dysphagia Evaluation:
Pt presents w/ acute urinary retention and chronic progressive aphasia. Given intermittent coughing/throat clearing at bedside during PO trials, reports of difficulty w/ swallowing (globus sensation), and possible PPA, pt presents w/ concerns for
dysphasia. Given baseline cough that did not increase w/ intake, no CXR completed thus far, no dysphagia/pna hx, and pt on room air, recommend to continue oral diet. Further F/U w/ ST to monitor diet level, assess speech/language, and determine if
further assessment via instrumental swallow study is recommended.
Recommendations:
1. IDDSI 6 Soft & Bite Size, Thins
2. Medications as best tolerated
3. Partial assistance/supervision w/ meals
4. Strategies: Slowed rate, single sips/small bites, alternating liquid washes
5. F/U w/ ST to observe current diet-level tolerance and determine if further instrumental swallow study is warranted.
--- NOTE | 2025-05-18 10:32 | PTOTSP ---
Speech therapy Evaluation:
Given progressive aphasia, the Quick Aphasia Battery (QAB) form 1 was administered. Scores were as follows:
Word Comprehension: 10.00
Sentence Comprehension: 7.08
Word Findin.25
Grammatical Construction: 3.50
Speech Motor Programmin.00
Repetition: 8.75
Readin.25
QAB Overall: 7.12 - moderate
Impression: Pt earned a score of 7.12 on the QAB, indicative of moderate aphasia per parameters of this assessment. Pt presented with expressive > receptive language deficits with reductions in sentence comprehension, word finding, grammatical
construction, repetition, and reading. In conversation, pt demonstrated reduced length and complexity of utterances, reduced speech rate, telegraphic speech, frequent anomia, filler words, and occasional semantic and phonemic paraphasias. Pt
primarily utilized yes/no responses in conversation, which were unreliable at times. Pt was able to self-correct in conversation and discuss simple topics, however communication limited beyond that. Of note, pt also with at least mild dysarthria
with reduced articulatory precision, however suspect partially related to edentulous state.
Pt would benefit from ongoing STORE ADMINISTRATIVE ASSISTANT services at acute care level and following d/c.
--- NOTE | 2025-05-18 10:37 | CM ---
Chart reviewed. Aphasia dx. IV abx for UTI
Therapy rec SNF at d/c. Discussed w/ patient, agreeable to SNF planning. No preference for facilities, agreeable to referrals in [place]
Referrals [facility] to [facility]
Per hospitalist, patient may be ready in about 2 days
Patient requires prior auth for SNF
Plan: SNF
--- NOTE | 2025-05-18 15:37 | EEG.RPT ---
Electroencephalogram Report
Recording
Date of EE05/18/25
Type of EEG: Routine
Length of EEG recordin minutes
Done with Video Recording: Yes
Patient Status: Inpatient
Recording Conditions: Awake and Drowsy
Hyperventilation Performed: No
Photic Stimulation Performed: Yes
Report
LESS THAN 1 HOUR EEG INTERPRETATION:
Unremarkable EEG for age
CLINICAL CORRELATION:
A normal EEG does not rule out a diagnosis of epilepsy. If clinical suspicion for seizure persists, a prolonged recording may be warranted.
Clinical correlation is advised.
METHODS:
A 21 channel digitized electroencephalogram (EEG) was performed using the 10/20 international system of electrode placement and one-lead of ECG recorded. The cocone quantitative EEG system was utilized.
ELECTROENCEPHALOGRAPHER IMPRESSION(S):
Quality of study
Good
Background
There was an unremarkable anterior-posterior voltage gradient of alpha frequency.
With eye opening the background activity changed to a low voltage mixture of frequencies.
There were no significant asymmetries of background activity noted.
Sleep
Drowsiness present
Photic Stimulation
No activation
ECG
Normal sinus rhythm
[2025-05-18] MEDS: LOVENOX 40 MG SC (17:39)
[2025-05-18] MEDS: LIPITOR 40 MG PO (17:39)
[2025-05-19] VITALS (7 sets, daily range): BP systolic 114–145; BP diastolic 55–79; PULSE 82
[2025-05-19] MEDS: ROCEPHIN 1000 MG IV (05:05)
[2025-05-19] MEDS: STERILE WATER FOR INJECTION 10 ML IV (05:05)
[2025-05-19] MEDS: FLOMAX 0.4 MG PO (08:15)
[2025-05-19] MEDS: VITAMIN B-12 1000 MCG PO (08:15)
[2025-05-19 09:12] LABS: Hematocrit 47.0 % (39.0-52.0); Hemoglobin 16.0 g/dL (13.0-18.0); Mean Corp Hgb Conc. 34.0 g/dL (33.0-37.0); Mean Corpuscular Volume 89.9 fL (80.0-94.0); Platelet Count 229 10^3/uL (130-400); Red Cell Dist. Width 13.7 % (11.5-14.5)
--- NOTE | 2025-05-19 09:19 | W.PN.HOSP.TC ---
Today's Communication/Plan
-
see A/P
Cont TOV
Dispo planning to SNF
Assessment / Plan
Assessment / Plan
HPI: 79-year-old male with past medical history significant for hypertension, gout, peripheral arterial disease; who presented to the emergency department for acute urinary retention status post urinary cath placement and then returned to the
emergency department for evaluation of progressive aphasia that had been going on for the last 6 months. Trouble speaking for the last 6 months, some word finding difficulties. He has had multiple CT scans in the past but has not had further
evaluation for his word finding difficulties.
He reported that he arose on 05/15/25 evening and had trouble urinating. He denied having any urinary pressure. Patient denied taking any new medications or [id number] medications that could be anticholinergic.
He was seen in the emergency department earlier and found to have urinary retention. Not exactly clear how much was retaining but a urinary catheter was placed and patient was discharged. He returned for further evaluation of his aphasia.
In the emergency department he had CT angio of the head and neck which showed no evidence of a large vessel occlusion, less than 50% proximal right internal carotid stenosis and 50% proximal left internal carotid stenosis which is stable from prior.
No other acute intracranial changes.
A/P:
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
MRI brain showed No acute intracranial abnormality.
EEG did not show seizure activity
Lipid panel with LDL 83, added Lipitor 40 mg daily in setting of carotid stenosis findings on CT imaging
TSH normal
Noted ESR elevated at 63, Check RAMBO
Vitamin B12 on the lower side at 301, started Vitamin B12
RPR was ordered on admission and pending
Neurology consult appreciated
PT recc SNF
# Urinary retention, Acute onset according to patient.
Denied h/o BPH. Denies any prior episodes of urinary retention, denies anticholinergics
Started trial of tamsulosin
s/p mahoney placement in ED, TOV started 05/19
# Complicated UTI with pansensitive E coli
urine culture grew pansensitive E coli
Deescalate Rocephin to PO Keflex
# PAD
# Gout
# carotid artery stenosis, Less than 50% proximal right internal carotid artery stenosis, 50% proximal left internal carotid artery stenosis
Started statin
May benefit from baby Aspirin as well, can discuss with neuro
# Multilevel degenerative disc disease. Mild reversal of the normal cervical spinal lordosis likely degenerative in nature. Stable (on CTA Chest)
DVT Prophylaxis: Lovenox SQ
Code Status: Full code
Dispo: PT recc SNF
DW RN
Anticipated Discharge: 24 - 48 hours
Subjective/Interval History
-
Date of Service: May 19, 2025
Objective Data
-
Labs:
Laboratory Results
05/19/25
08:39
WBC 10.0
Hgb 16.0
Hct 47.0
Plt Count 229
Sodium Pending
Potassium Pending
Chloride Pending
Carbon Dioxide Pending
BUN Pending
Creatinine Pending
Glucose Pending
Calcium Pending
Vital Signs:
Vital Signs
Temp Pulse Resp BP Pulse Ox
36.8 C 76 18 135/77 91
05/19/25 07:00 05/19/25 07:00 05/19/25 07:00 05/19/25 07:00 05/19/25 07:00
I&O
05/18/25 05/19/25 05/20/25
06:59 06:59 06:59
Intake Total 220 / 220 690 / 690
Output Total 925 / 925 250 / 250
Balance -705 / -705 440 / 440
Review of Systems
-
Unable to obtain full review of systems at this time due to: Other (expressive aphasia)
Physical Exam
-
General: Well Developed, Well Nourished, No Apparent Distress, Comfortable, Appears Chronically Ill and Other (expressive aphasia, answers 'yes' or 'no' ); Negative Respiratory Distress
HEENT: Normocephalic, Atraumatic, Nose Appears Normal and Ears Appear Normal; Negative Oxygen
Respiratory: Clear to Auscultation and Non Labored Respirations; Negative Accessory Resp Muscle Use
Cardiac: Regular Rhythm and S1/S2
GI: Soft, Nontender, Nondistended and Normal Bowel Sounds
Genito-urinary: Negative Mahoney (removed 05/19 for TOV)
Skin: Warm and Dry
Neuro: Awake and Alert
Psych: Calm
Data Reviewed
-
CT Scan: Report Reviewed by me
MRI: Report Reviewed by me and Discussed with Patient
Labs: Labs Reviewed by me
[2025-05-19 09:41] LABS: Blood Urea Nitrogen 14 mg/dl (9-20); Calcium 9.6 mg/dl (8.4-10.2); Carbon Dioxide 29 mmol/L (22-30); Chloride 101 mmol/L (98-107); Estimated Creatinine Clearance 86 ml/min; Glucose 113 mg/dl (70-99); Magnesium 2.2 mg/dl (1.6-2.3); Potassium 4.1 mmol/L (3.5-5.1); Sodium 140 mmol/L (135-145); eGFR > 60.00
--- NOTE | 2025-05-19 13:52 | CM ---
Chart reviewed. Per hospitalist, patient poss ready to d/c tomorrow
Reviewed SNFs w/ patient, [facility]. Patient prefers [facility]
Discussed w/ [facility] director, confirmed a bed can be offered for tomorrow
CM initiated auth in [employer]. Faxed clinicals to [phone]
Pending certification # [id number]
Plan: D/c to [facility], hopefully tomorrow if auth is obtained
[2025-05-19 15:38] LABS: Syphilis/T. pallidum Ab Reflex Negative (Negative)
[2025-05-19] MEDS: LIPITOR 40 MG PO (18:28)
[2025-05-19] MEDS: LOVENOX 40 MG SC (18:28)
--- NOTE | 2025-05-19 18:43 | PTCARENOTE ---
pt reports that his car is here. potential for pt to go to [facility] tomorrow. this note is to inform case management that the pts car is parked in the hospital parking lot.
[2025-05-19] MEDS: SENOKOT-S 1 TABLET PO (19:20)
[2025-05-19] MEDS: KEFLEX 500 MG PO (19:20)
[2025-05-20] VITALS (7 sets, daily range): BP systolic 132–154; BP diastolic 73–86
[2025-05-20] MEDS: KEFLEX 500 MG PO ×2 (07:17→19:10)
[2025-05-20] MEDS: VITAMIN B-12 1000 MCG PO (07:17)
[2025-05-20] MEDS: FLOMAX 0.4 MG PO (07:17)
--- NOTE | 2025-05-20 09:17 | W.PN.HOSP.TC ---
Today's Communication/Plan
-
for SNF today
Assessment / Plan
Assessment / Plan
HPI: 79-year-old male with past medical history significant for hypertension, gout, peripheral arterial disease; who presented to the emergency department for acute urinary retention status post urinary cath placement and then returned to the
emergency department for evaluation of progressive aphasia that had been going on for the last 6 months. Trouble speaking for the last 6 months, some word finding difficulties. He has had multiple CT scans in the past but has not had further
evaluation for his word finding difficulties.
He reported that he arose on 05/15/25 evening and had trouble urinating. He denied having any urinary pressure. Patient denied taking any new medications or [id number] medications that could be anticholinergic.
He was seen in the emergency department earlier and found to have urinary retention. Not exactly clear how much was retaining but a urinary catheter was placed and patient was discharged. He returned for further evaluation of his aphasia.
In the emergency department he had CT angio of the head and neck which showed no evidence of a large vessel occlusion, less than 50% proximal right internal carotid stenosis and 50% proximal left internal carotid stenosis which is stable from prior.
No other acute intracranial changes.
A/P:
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
MRI brain showed No acute intracranial abnormality.
EEG did not show seizure activity
Lipid panel with LDL 83, added Lipitor 40 mg daily in setting of carotid stenosis findings on CT imaging
TSH normal
Noted ESR elevated at 63, RAMBO was sent, can follow up outpt
Vitamin B12 on the lower side at 301, started Vitamin B12
RPR was ordered on admission and pending, can follow up outpt
Neurology consult appreciated
PT recc SNF
# Urinary retention, Acute onset according to patient.
Denied h/o BPH. Denies any prior episodes of urinary retention, denies anticholinergics
Started trial of tamsulosin
s/p mahoney placement in ED, TOV started 05/19 and pt passed voiding trial
# Complicated UTI with pansensitive E coli
urine culture grew pansensitive E coli
Deescalate Rocephin to PO Keflex, would treat for 14 days total (9 more days after DC)
# PAD
# Gout
# carotid artery stenosis, Less than 50% proximal right internal carotid artery stenosis, 50% proximal left internal carotid artery stenosis
Started statin
# Multilevel degenerative disc disease. Mild reversal of the normal cervical spinal lordosis likely degenerative in nature. Stable (on CTA Chest)
DVT Prophylaxis: Lovenox SQ
Code Status: Full code
Dispo: PT recc SNF
DW RN
Anticipated Discharge: Today
Subjective/Interval History
-
Date of Service: May 20, 2025
Objective Data
-
Labs:
Laboratory Results
05/20/25
06:00
WBC Pending
Hgb Pending
Hct Pending
Plt Count Pending
Sodium Pending
Potassium Pending
Chloride Pending
Carbon Dioxide Pending
BUN Pending
Creatinine Pending
Glucose Pending
Calcium Pending
Vital Signs:
Vital Signs
Temp Pulse Resp BP Pulse Ox
36.4 C 72 16 144/78 94
05/20/25 07:55 05/20/25 07:55 05/20/25 07:55 05/20/25 07:55 05/20/25 07:55
I&O
05/19/25 05/20/25 05/21/25
06:59 06:59 06:59
Intake Total 690 / 690 920 / 920
Output Total 250 / 250 200 / 200
Balance 440 / 440 720 / 720
Review of Systems
-
Unable to obtain full review of systems at this time due to: Other (expressive aphasia, chronic)
Physical Exam
-
General: Well Developed, Well Nourished, No Apparent Distress, Comfortable, Appears Chronically Ill and Other (expressive aphasia, answers 'yes' or 'no' ); Negative Respiratory Distress
HEENT: Normocephalic, Atraumatic, Nose Appears Normal and Ears Appear Normal; Negative Oxygen
Respiratory: Clear to Auscultation and Non Labored Respirations; Negative Accessory Resp Muscle Use
Cardiac: Regular Rhythm and S1/S2
GI: Soft, Nontender, Nondistended and Normal Bowel Sounds
Genito-urinary: Negative Mahoney (removed 05/19 for TOV)
Skin: Warm and Dry
Neuro: Awake and Alert
Psych: Calm
Data Reviewed
-
CT Scan: Report Reviewed by me
MRI: Report Reviewed by me and Discussed with Patient
Labs: Labs Reviewed by me
[2025-05-20 09:41] LABS: Hematocrit 46.7 % (39.0-52.0); Hemoglobin 16.3 g/dL (13.0-18.0); Mean Corp Hgb Conc. 34.9 g/dL (33.0-37.0); Mean Corpuscular Volume 90.3 fL (80.0-94.0); Platelet Count 235 10^3/uL (130-400); Red Cell Dist. Width 13.4 % (11.5-14.5)
--- NOTE | 2025-05-20 10:01 | CM ---
Addendum entered by Klaudia Singh 05/20/25 14:22:
tire manager received a call from patient's insurance that pain was denied, SAC level 2, shoe caser reached out to physician advisor to appeal.
Addendum entered by Klaudia Singh 05/20/25 12:48:
Still no Auth from insurance, patient is currently ambulating 45 feet X 3 medical doctor md/medical director at insurance will need to make final decision to see if patient qualifies for skilled placement.
Original Note:
Chart reviewed and call placed to [facility] and they have a bed for patient today, call placed to patient's insurance and still no Auth for skilled placement.
Plan; Skilled placement at [facility] waiting on Auth from insurance.
[2025-05-20 10:22] LABS: Blood Urea Nitrogen 14 mg/dl (9-20); Calcium 9.6 mg/dl (8.4-10.2); Carbon Dioxide 26 mmol/L (22-30); Chloride 103 mmol/L (98-107); Estimated Creatinine Clearance 75 ml/min; Glucose 126 mg/dl (70-99); Potassium 3.8 mmol/L (3.5-5.1); Sodium 139 mmol/L (135-145); eGFR > 60.00
--- NOTE | 2025-05-20 12:20 | W.DCSUMMARY ---
Addendum entered and electronically signed by Ekta Gee MD 05/21/25 13:29:
Date of Discharge: 05/21/25
Original Note:
Discharge Summary
Discharge Data
Date of Admission: 05/20/25
Date of Discharge: 05/20/25
Total time spent discharging patient (in min): 40
-
Pending Results: No
Hospital Course
Principal Diagnosis:
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
Urinary retention, resolved
Complicated urinary tract infection in a male, with pansensitive E. coli
Chronic Diagnoses:�
PAD
Gout
Carotid artery stenosis, Less than 50% proximal right internal carotid artery stenosis, 50% proximal left internal carotid artery stenosis
Multilevel degenerative disc disease. Mild reversal of the normal cervical spinal lordosis likely degenerative in nature. Stable (on CTA Chest)
Consultations:�
Neurology
Procedures:�
None
Clinical course:�
This is a 79-year-old male with past medical history as stated above, who presented with progressive chronic aphasia that had been going on for the last 6 months.
He also complained of urinary retention.
Problem 1:
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
His MRI brain showed no acute intracranial abnormality.
EEG was also obtained which was unrevealing, did not show seizure activity.
His LDL was at 83, and Lipitor 40 mg daily was started in setting of his carotid stenosis findings on CTA.
His ESR was noted to be elevated at 63, and RAMBO was sent, which he can follow up outpatient (result was still pending at the time of discharge).
His Vitamin B12 was noted on the lower side at 301, hence he was started Vitamin B12, which he can continue going forward.
RPR was ordered on admission and was pending, this can follow up outpatient too.
He was discharged to SNF for PT OT recommendation.
Problem 2:
Urinary retention (resolved) with complicated UTI from pansensitive E coli.
He initially had a Zuluaga placed, and it was removed for voiding trial on 05/19/2025 which he passed.
He can continue with Flomax that was started this admission.
His urine culture grew pansensitive E. col.
The patient received ceftriaxone initially and that was later de-escalated to oral Keflex. He can continue oral antibiotic for a total of 14 days.
As for the rest of his medical problems, they were stable during his hospital stay.
Discharge Plan
-
Patient Disposition: [facility]/SNF
Discharge Diagnosis/Procedures: Chronic expressive aphasia, likely neurodegenerative disease;
carotid artery stenosis (Less than 50% proximal right internal carotid artery stenosis, 50% proximal left internal carotid artery stenosis);
Urinary retention (resolved);
Complicated UTI with pansensitive E coli;
Low B12 level (at 300)
Condition: Fair
Diet: As tolerated and Other diet
Additional Diets: soft and bite size
Activity: As tolerated
Driving Restrictions: No driving
Activity Restrictions/Additional Instructions:
Follow-up RAMBO results outpatient with your PCP
Referrals:
UNKNOWN - PT DOES,NOT KNOW [Family Provider] - in less than 1 week
Additional Discharge Medication Instructions: Continue Keflex for 9 more days
Continue vitamin B12 supplement
You were started with statin for carotid stenosis
Prescriptions:
New
tamsulosin 0.4 mg Capsule
0.4 mg PO DAILY Qty: 30 0RF
cephalexin 500 mg Capsule
500 mg PO BID 9 Days Qty: 18 0RF
atorvastatin 40 mg Tablet
40 mg PO QPM Qty: 30 0RF
cyanocobalamin (vitamin B-12) [Vitamin B-12] 500 mcg Tablet
1,000 mcg PO DAILY Qty: 30 0RF
Continued
diclofenac sodium 75 mg tablet,delayed release (DR/EC)
75 mg PO BID PRN (Reason: Pain) Qty: 20 0RF
lidocaine 4 % adhesive patch,medicated
1 patch topical DAILY PRN (Reason: Pain) Qty: 10 0RF
Discontinued
doxycycline hyclate 100 MG capsule
100 mg PO BID Qty: 14 0RF
methylprednisolone [Medrol ([place])] 4 mg tablets,dose pack
See Rx Instructions .ROUTE .COMPLEX Qty: 21 0RF
Rx Instructions:
orally per package directions
Discharge Orders:
Discharge Patient (As Directed); Ordered 05/20/25
Ordered By: Ekta Gee
Discharge Date and Time
Print Language: MACANESE
[2025-05-20] MEDS: LOVENOX 40 MG SC (18:23)
[2025-05-20] MEDS: LIPITOR 40 MG PO (18:23)
[2025-05-21 03:11] VITALS: BP 136/78
[2025-05-21 07:42] VITALS: BP 146/78
[2025-05-21 07:51] LABS: Hematocrit 48.2 % (39.0-52.0); Hemoglobin 16.4 g/dL (13.0-18.0); Mean Corp Hgb Conc. 34.0 g/dL (33.0-37.0); Mean Corpuscular Volume 91.6 fL (80.0-94.0); Platelet Count 229 10^3/uL (130-400); Red Cell Dist. Width 13.6 % (11.5-14.5)
[2025-05-21 08:23] LABS: Blood Urea Nitrogen 14 mg/dl (9-20); Calcium 9.6 mg/dl (8.4-10.2); Carbon Dioxide 29 mmol/L (22-30); Chloride 105 mmol/L (98-107); Estimated Creatinine Clearance 86 ml/min; Glucose 107 mg/dl (70-99); Potassium 4.0 mmol/L (3.5-5.1); Sodium 141 mmol/L (135-145); eGFR > 60.00
--- NOTE | 2025-05-21 08:36 | W.PN.HOSP.TC ---
Today's Communication/Plan
-
see A/P
DC today with HH
Assessment / Plan
Assessment / Plan
HPI: 79-year-old male with past medical history significant for hypertension, gout, peripheral arterial disease; who presented to the emergency department for acute urinary retention status post urinary cath placement and then returned to the
emergency department for evaluation of progressive aphasia that had been going on for the last 6 months. Trouble speaking for the last 6 months, some word finding difficulties. He has had multiple CT scans in the past but has not had further
evaluation for his word finding difficulties.
He reported that he arose on 05/15/25 evening and had trouble urinating. He denied having any urinary pressure. Patient denied taking any new medications or [id number] medications that could be anticholinergic.
He was seen in the emergency department earlier and found to have urinary retention. Not exactly clear how much was retaining but a urinary catheter was placed and patient was discharged. He returned for further evaluation of his aphasia.
In the emergency department he had CT angio of the head and neck which showed no evidence of a large vessel occlusion, less than 50% proximal right internal carotid stenosis and 50% proximal left internal carotid stenosis which is stable from prior.
No other acute intracranial changes.
A/P:
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
MRI brain showed No acute intracranial abnormality.
EEG did not show seizure activity
Lipid panel with LDL 83, added Lipitor 40 mg daily in setting of carotid stenosis findings on CT imaging
TSH normal
Noted ESR elevated at 63, RAMBO was sent, can follow up outpt
Vitamin B12 on the lower side at 301, started Vitamin B12
RPR was ordered on admission, negative
Neurology consult appreciated
PT recc SNF , however pt was declined by insurance, hence dispo plan now with HH
# Urinary retention, Acute onset according to patient.
Denied h/o BPH. Denies any prior episodes of urinary retention, denies anticholinergics
Started trial of tamsulosin, cont
s/p mahoney placement in ED, TOV started 05/19 and pt passed voiding trial
# Complicated UTI with pansensitive E coli
urine culture grew pansensitive E coli
Deescalate Rocephin to PO Keflex, would treat for 14 days total
# PAD
# Gout
# carotid artery stenosis, Less than 50% proximal right internal carotid artery stenosis, 50% proximal left internal carotid artery stenosis
Started statin
# Multilevel degenerative disc disease. Mild reversal of the normal cervical spinal lordosis likely degenerative in nature. Stable (on CTA Chest)
DVT Prophylaxis: Lovenox SQ
Code Status: Full code
Dispo: PT recc [facility], however pt was declined by insurance, hence dispo plan now with
Anticipated Discharge: Today
Subjective/Interval History
-
Date of Service: May 21, 2025
Objective Data
-
Labs:
Laboratory Results
05/21/25
07:38
WBC 7.2
Hgb 16.4
Hct 48.2
Plt Count 229
Sodium 141
Potassium 4.0
Chloride 105
Carbon Dioxide 29
BUN 14
Creatinine 0.7
Glucose 107 H
Calcium 9.6
Vital Signs:
Vital Signs
Temp Pulse Resp BP Pulse Ox
36.2 C 72 17 136/78 94
05/21/25 03:11 05/21/25 03:11 05/21/25 03:11 05/21/25 03:11 05/21/25 03:11
I&O
05/20/25 05/21/25 05/22/25
06:59 06:59 06:59
Intake Total 920 / 920 1060 / 1060
Output Total 200 / 200 50 / 50
Balance 720 / 720 1010 / 1010
Review of Systems
-
Unable to obtain full review of systems at this time due to: Other (expressive aphasia, chronic)
Physical Exam
-
General: Well Developed, Well Nourished, No Apparent Distress, Comfortable, Appears Chronically Ill and Other (expressive aphasia, answers 'yes' or 'no' and simple words); Negative Respiratory Distress
HEENT: Normocephalic, Atraumatic, Nose Appears Normal and Ears Appear Normal; Negative Oxygen
Respiratory: Clear to Auscultation and Non Labored Respirations; Negative Accessory Resp Muscle Use
Cardiac: Regular Rhythm and S1/S2
GI: Soft, Nontender, Nondistended and Normal Bowel Sounds
Genito-urinary: Negative Mahoney (removed 05/19 for TOV)
Skin: Warm and Dry
Neuro: Awake and Alert
Psych: Calm and Intact Judgement/Insight (somewhat)
Data Reviewed
-
CT Scan: Report Reviewed by me
MRI: Report Reviewed by me and Discussed with Patient
Labs: Labs Reviewed by me
[2025-05-21] MEDS: VITAMIN B-12 1000 MCG PO (08:54)
[2025-05-21] MEDS: FLOMAX 0.4 MG PO (08:55)
[2025-05-21] MEDS: KEFLEX 500 MG PO (08:55)
[2025-05-21 09:37] VITALS: BP 154/85; PULSE 78
--- NOTE | 2025-05-21 10:35 | CM ---
Addendum entered by Ally Espitia 05/21/25 12:00:
[facility] intake referral made. [facility] will reach out to patient today
Original Note:
Chart reviewed. Patient declined SNF per insurance. cycle director peer to peer upheld denial
Spoke w/ PT who seen patient this morning who stated patient has improved functionally, however, there are cognitive concerns and will have OT see patient to focus on cognition. Concerns about patient going home alone.
Spoke w/ patient's friend, Conor, updated on therapy and current cognitive concerns. Per Conor, patient has declined help in the past. Conor stated he found patient an apartment that is affordable, however, patient declined this. Conor
stated [facility] but [facility] not [facility]ated or showed up for appts so they cannot assist him w/ no initial evaluation. Conor stated he hasn't talked to patient as he does not answer his calls. Conor confirmed he is not POA but just
a long life friend.
[facility] referral made
Plan: Home w/ VN, patient provided [facility] resources (Housing link, [facility])
[2025-05-21 11:10] VITALS: BP 139/74
--- NOTE | 2025-05-21 13:24 | VNURNOTE ---
Late entry. Chart reviewed. Per CM, pt drives and goes out of the house. Per notes, he does not follow up or keep appointments and is not current with PCP or Dr from [facility] (never attended initial appt). Per notes, he frequently does not answer the
phone. This author called pt's cell phone, no answer.
Does not appear to be homebound or have PCP.
PM [facility] cannot accept referral. CM updated.
[2025-05-22 02:02] LABS: ANA, IgG Reflex to HEp-2 None Detected (None Detected)
== END 2025-05-21 11:52 | disposition home health service (06) | DRG 57 ==
LOC: 4 EAST ACU 10:07
PROVIDERS: Hospitalist; ADMITTING PHYSICIAN Internal Medicine; ATTENDING PHYSICIAN Internal Medicine; CONSULT PHYSICIAN Psychiatry & Neurology Neurology; EMERGENCY PHYSICIAN Emergency Medicine
DX: G31.9 Degenerative disease of nervous system, unspecified (principal); R47.01 Aphasia; N39.0 Urinary tract infection, site not specified; R33.8 Other retention of urine; I10 Essential (primary) hypertension; I73.9 Peripheral vascular disease, unspecified; M10.9 Gout, unspecified; I65.23 Occlusion and stenosis of bilateral carotid arteries; B96.20 Unspecified Escherichia coli [E. coli] as the cause of diseases classified elsewhere; Z79.899 Other long term (current) drug therapy
CPT/HCPCS: 51798; 70551; 80048; 80061; 81003; 81015; 82607; 83735; 84443; 85027; 85652; 86038; 86780; 86803; 87077; 87086; 87186; 92507; 92523; 92526; 92610; 95816; 97116; 97129; 97162; 97166; 97530; 97535; 99284